=== PATIENT | female | born 1970 | race African-American/Black ===

== ENCOUNTER 2018-01-03 10:50 | Emergency (ER) | payer MEDICAID, MEDICARE, SELFPAY ==
[2018-01-03] MEDS ORDERED: Ibuprofen 800 MG TAB ONE (11:18)
[2018-01-03] MEDS ORDERED: HyperTET 250 UNITS/ML 1 ML SYRINGE ONE (11:18)
[2018-01-03] MEDS ORDERED: HYDROcodone/Acetaminophen 10/325 mg Tablet ONE (11:18)
== END 2018-01-03 11:20 | disposition home or self-care (01) ==
LOC: MADERS 10:50
DX: M17.11 Unilateral primary osteoarthritis, right knee (principal); Z79.899 Other long term (current) drug therapy; Z79.51 Long term (current) use of inhaled steroids
CPT/HCPCS: 99283; J1670

== ENCOUNTER 2019-05-10 11:28 | Emergency (ER) | payer OTHER ==
[2019-05-10] MEDS ORDERED: Acetaminophen 500 MG TAB ONE (11:58)
--- NOTE | 2019-05-10 12:13 | RAD ---
Exam: XR Forearm Rt 2 View STANDARD HISTORY: Injury to right forearm. COMPARISON: None FINDINGS: No acute fracture, dislocation, or other acute osseous abnormality is identified. IMPRESSION: No acute osseous abnormality is identified.
== END 2019-05-10 12:28 | disposition home or self-care (01) ==
LOC: MADERS 11:28
DX: S50.11XA Contusion of right forearm, initial encounter (principal); W06.XXXA Fall from bed, initial encounter

== ENCOUNTER 2021-08-20 06:49 | Outpatient (CLI) | payer OTHER, MEDICAID | END 2021-08-20 06:50 | disposition home or self-care (01) | LOC: MADRAD 06:49 | PROVIDERS: ATTEND Internal Medicine Rheumatology | DX: M25.561 Pain in right knee (principal); M25.562 Pain in left knee; M25.511 Pain in right shoulder; M17.0 Bilateral primary osteoarthritis of knee | CPT/HCPCS: 73565 ==